=== PATIENT | female | born 1995 | race Caucasian/White ===

== ENCOUNTER 2019-01-15 13:57 | Emergency (ER) | payer BC ==
[~2019-01-15] VITALS: Ht 172.7 cm; Wt 53.5 kg
[2019-01-15] MEDS ORDERED: LAMO25TA5 PO (14:36)
[2019-01-15] MEDS ORDERED: IV NORMAL SALINE 1000ML BAG 1,000 ML IV SCH (15:11)
[2019-01-15] MEDS ORDERED: PROCHLORPERAZINE 10 MG/2 ML VIAL. IV ONE (15:15)
[2019-01-15] MEDS ORDERED: FAMOTIDINE 20 MG/2 ML VIAL IVP ONE (15:15)
[2019-01-15] MEDS ORDERED: HYOSCYAMINE 0.125 MG TAB.RAPDIS PO ONE (15:15)
--- NOTE | 2019-01-15 15:27 | PHYS DOC ---
Past Medical History Past Medical History: No Pertinent History Alcohol Use: None Drug Use: None Adult General Chief Complaint Chief Complaint: ABDOMINAL PAIN HPI HPI Patient is a 23 year old female who presents with upper abdominal pain that started yesterday evening. This is sharp, radiates into the back. No relief with [id number] Aleve. There is nausea, no vomiting, no diarrhea. Nothing seems to make the discomfort better or worse. No previous history of this discomfort. Pain is moderate to severe.[] Review of Systems Review of Systems Constitutional: Denies fever or chills [] Eyes: Denies change in visual acuity, redness, or eye pain [] HENT: Denies nasal congestion or sore throat [] Respiratory: Denies cough or shortness of breath [] Cardiovascular: No chest pain or palpitations[] GI: See history of present illness[] : Denies dysuria or hematuria [] Musculoskeletal: Denies back pain or joint pain [] Integument: Denies rash or skin lesions [] Neurologic: Denies headache, focal weakness or sensory changes [] Endocrine: Denies polyuria or polydipsia [] All other systems were reviewed and found to be within normal limits, except as documented in this note. Current Medications Current Medications Current Medications Medications (Trade) Dose Ordered Sig/Tosin Start Time Stop Time Status Last Admin Dose Admin Famotidine (Pepcid Vial) 20 mg 1X ONCE 01/15/19 15:15 01/15/19 15:16 DC 01/15/19 15:49 20 MG Hyoscyamine (Anaspaz) 0.125 mg ONCE ONCE 01/15/19 15:15 01/15/19 15:16 DC 01/15/19 15:54 0.125 MG Info (CONTRAST GIVEN -- Rx MONITORING) 1 each PRN DAILY PRN 01/15/19 15:30 01/17/19 15:29 Iohexol (Omnipaque 300 Mg/ml) 75 ml 1X ONCE 01/15/19 15:30 01/15/19 15:31 DC Multi-Ingredient Mouthwash/Gargle (Gi Cocktail) 20 ml 1X ONCE 01/15/19 15:30 01/15/19 15:31 DC 01/15/19 15:56 20 ML Prochlorperazine Edisylate (Compazine) 5 mg 1X ONCE 01/15/19 15:15 01/15/19 15:16 DC 01/15/19 15:58 5 MG Sodium Chloride 1,000 ml @ 100 mls/hr Q10H 01/15/19 15:11 01/16/19 01:10 01/15/19 15:47 100 MLS/HR Allergies Allergies Allergies Coded Allergies Type Severity Reaction Last Updated Verified No Known Drug Allergies 01/15/19 No Physical Exam Physical Exam Constitutional: Well developed, well nourished, no acute distress, non-toxic appearance. [] HENT: Normocephalic, atraumatic, bilateral external ears normal, oropharynx moist, no oral exudates, nose normal. [] Eyes: PERRLA, EOMI, conjunctiva normal, no discharge. [] Neck: Normal range of motion, no tenderness, supple, no stridor. [] Cardiovascular:Heart rate regular rhythm, no murmur [] Lungs & Thorax: Bilateral breath sounds clear to auscultation [] Abdomen: Bowel sounds normal, soft, epigastric tenderness, no rebound, no guarding, no rigidity, no Soto's sign, no McBurney's point tenderness, no masses, no pulsatile masses. [] Skin: Warm, dry, no erythema, no rash. [] Back: No tenderness, no CVA tenderness. [] Extremities: No tenderness, no cyanosis, no clubbing, ROM intact, no edema. [] Neurologic: Alert and oriented X 3, normal motor function, normal sensory function, no focal deficits noted. [] Psychologic: Affect normal, judgement normal, mood normal. [] Current Patient Data Vital Signs Vital Signs Date Time Temp Pulse Resp B/P (MAP) Pulse Ox O2 Delivery O2 Flow Rate FiO2 01/15/19 14:29 97.9 69 16 92/64 (73) 100 Room Air 97.9 Lab Values Laboratory Tests Test 01/15/19 13:50 01/15/19 14:40 01/15/19 15:21 POC Urine HCG, Qualitative Hcg negative (Negative) Urine Collection Type Unknown Urine Color Yellow Urine Clarity Clear Urine pH 6.5 Urine Specific [place] 1.025 Urine Protein 30 mg/dL (NEG-TRACE) Urine Glucose (UA) Negative mg/dL (NEG) Urine Ketones (Stick) Trace mg/dL (NEG) Urine Blood Trace (NEG) Urine Nitrite Negative (NEG) Urine Bilirubin Negative (NEG) Urine Urobilinogen Dipstick 0.2 mg/dL (0.2 mg/dL) Urine Leukocyte Esterase Moderate (NEG) Urine RBC 1-2 /HPF (0-2) Urine WBC 5-10 /HPF (0-4) Urine Squamous Epithelial Cells Many /LPF Urine Bacteria Many /HPF (0-FEW) Urine Mucus Marked /LPF Urine Opiates Screen Neg (NEG) Urine Methadone Screen Neg (NEG) Urine Barbiturates Neg (NEG) Urine Phencyclidine Screen Neg (NEG) Urine Amphetamine/Methamphetamine Neg (NEG) Urine Benzodiazepines Screen Neg (NEG) Urine Cocaine Screen Pos (NEG) Urine Cannabinoids Screen Pos (NEG) Urine Ethyl Alcohol Neg (NEG) White Blood Count 11.2 x10^3/uL (4.0-11.0) H Red Blood Count 4.06 x10^6/uL (3.50-5.40) Hemoglobin 12.7 g/dL (12.0-15.5) Hematocrit 37.1 % (36.0-47.0) Mean Corpuscular Volume 92 fL (79-100) Mean Corpuscular Hemoglobin 31 pg (25-35) Mean Corpuscular Hemoglobin Concent 34 g/dL (31-37) Red Cell Distribution Width 11.9 % (11.5-14.5) Platelet Count 323 x10^3/uL (140-400) Neutrophils (%) (Auto) 82 % (31-73) H Lymphocytes (%) (Auto) 12 % (24-48) L Monocytes (%) (Auto) 5 % (0-9) Eosinophils (%) (Auto) 1 % (0-3) Basophils (%) (Auto) 0 % (0-3) Neutrophils # (Auto) 9.2 x10^3uL (1.8-7.7) H Lymphocytes # (Auto) 1.3 x10^3/uL (1.0-4.8) Monocytes # (Auto) 0.5 x10^3/uL (0.0-1.1) Eosinophils # (Auto) 0.1 x10^3/uL (0.0-0.7) Basophils # (Auto) 0.0 x10^3/uL (0.0-0.2) Sodium Level 142 mmol/L (136-145) Potassium Level 4.1 mmol/L (3.5-5.1) Chloride Level 103 mmol/L (98-107) Carbon Dioxide Level 30 mmol/L (21-32) Anion Gap 9 (6-14) Blood Urea Nitrogen 17 mg/dL (7-20) Creatinine 0.8 mg/dL (0.6-1.0) Estimated GFR (Cockcroft-Gault) 90.5 BUN/Creatinine Ratio 21 (6-20) H Glucose Level 91 mg/dL (70-99) Calcium Level 9.0 mg/dL (8.5-10.1) Total Bilirubin 0.4 mg/dL (0.2-1.0) Aspartate Amino Transferase (AST) 19 U/L (15-37) Alanine Aminotransferase (ALT) 16 U/L (14-59) Alkaline Phosphatase 78 U/L (46-116) Total Protein 7.8 g/dL (6.4-8.2) Albumin 3.9 g/dL (3.4-5.0) Albumin/Globulin Ratio 1.0 (1.0-1.7) Lipase 78 U/L (73-393) Laboratory Tests 01/15/19 15:21 Laboratory Tests 01/15/19 15:21 EKG EKG [] Radiology/Procedures Radiology/Procedures CT abdomen and pelvis with contrast. HISTORY: Upper abdominal pain CT scan of the abdomen and pelvis was done using 75 mL Omnipaque 300 contrast. Lung bases are clear. There is no effusion. Liver is normal in appearance. Gallbladder is distended but without calcified gallstones stones. The common duct is dilated ultrasound could be of benefit. Spleen and adrenal glands are normal. Pancreas is normal. There is no mass or hydronephrosis in the kidneys. There is no bowel obstruction. There is no free air. There is an intrauterine contraceptive device in good position. Appendix is on the right side of the pelvis and is normal in appearance. IMPRESSION: 1. Normal appendix. 2. Dilated common duct. 3. Distended gallbladder, ultrasound could be of benefit. 3. No renal or ureteral calculus noted. 4. No bowel obstruction or other acute finding.[] Course & Med Decision Making Course & Med Decision Making Pertinent Labs and Imaging studies reviewed. (See chart for details) D course: Patient arrived, was placed in bed, and tolerated exam well. She achieved significant pain relief with the medications administered. She was transported to and from CT without any complications. After the return of the laboratory and imaging findings, these were discussed with the patient who voiced understanding. All questions were answered. Medical decision making: This CT report is appreciated however patient does not have any right upper quadrant tenderness and no Soto's sign on exam. Additionally her LFTs are normal along with her lipase. So this may be a symptomatic cholelithiasis but there is no evidence of cholecystitis nor cholangitis. No evidence of pancreatitis. No evidence of perforation or obstruction. She may have a urinary tract infection based on contaminated specimen. Additionally her drug screen is noted to be positive for cannabinoids as well as cocaine which may also be triggering some of this discomfort.[] Dragon Disclaimer Dragon Disclaimer This electronic medical record was generated, in whole or in part, using a voice recognition dictation system. Departure Departure Impression: Primary Impression: Abdominal pain Disposition: HOME, SELF-CARE Condition: IMPROVED Patient Instructions: Abdominal Pain Additional Instructions: Drink plenty of fluids. Avoid fatty foods, milk, and pepper. Do not use any drugs or medications that are not prescribed for you, they may kill you. Follow- up with your regular doctor in 2 days. If you do not have regular doctor a list of local clinics will be provided for you. Return to the ER if worsening pain, unable to tolerate liquids, or any other concerns. Scripts Lansoprazole (PREVACID) 15 Mg Capsule.dr 15 MG PO DAILY, #20 CAP Prov: JOÃO العلي DO 01/15/19 Hyoscyamine Sulfate (LEVSIN) 0.125 Mg Tablet 0.125 MG PO QID, #30 TAB Prov: JOÃO العلي DO 01/15/19 Problem Qualifiers Primary Impression: Abdominal pain Abdominal location: epigastric Qualified Codes: R10.13 - Epigastric pain JOÃO العلي DO Jan 15, 2019 15:27
[2019-01-15] MEDS ORDERED: CONTRAST GIVEN. MC PRN (15:30)
[2019-01-15] MEDS ORDERED: IOHEXOL 300 MG/ML 100ML VIAL. IV ONE (15:30)
[2019-01-15] MEDS ORDERED: LIDO:MAALOX 1:1 20 ML SINGLE DOSE. SWSW ONE (15:30)
[2019-01-15 15:54] LABS: BASO % 0 % (0-3); EOS # 0.1 x10^3/uL (0.0-0.7); EOS % 1 % (0-3); HEMATOCRIT 37.1 % (36.0-47.0); HEMOGLOBIN 12.7 g/dL (12.0-15.5); LYMPH # 1.3 x10^3/uL (1.0-4.8); LYMPH % 12 % (24-48); MEAN CORPUSCULAR HEMOGLOBIN 31 pg (25-35); MEAN CORPUSCULAR HGB CONC 34 g/dL (31-37); MEAN CORPUSCULAR VOLUME 92 fL (79-100); MONO # 0.5 x10^3/uL (0.0-1.1); MONO % 5 % (0-9); NEUT # 9.2 x10^3uL (1.8-7.7); NEUT % 82 % (31-73); PLATELET COUNT 323 x10^3/uL (140-400); RED BLOOD COUNT 4.06 x10^6/uL (3.50-5.40); RED CELL DISTRIBUTION WIDTH 11.9 % (11.5-14.5); WHITE BLOOD COUNT 11.2 x10^3/uL (4.0-11.0)
[2019-01-15 15:58] LABS: BILIRUBIN,URINE NEGATIVE (NEG); CLARITY,URINE CLEAR; COLOR,URINE YELLOW; NITRITE,URINE NEGATIVE (NEG); PH,URINE 6.5; PROTEIN,URINE 30 mg/dL (NEG-TRACE); UROBILINOGEN,URINE 0.2 mg/dL (0.2 mg/dL)
[2019-01-15 16:06] LABS: CREATININE 0.8 mg/dL (0.6-1.0); GFR 90.5; POTASSIUM 4.1 mmol/L (3.5-5.1)
[2019-01-15 16:08] LABS: BACTERIA,URINE MANY /HPF (0-FEW); SQUAMOUS EPITHELIAL CELL,UR MANY /LPF
[2019-01-15 16:09] LABS: ALBUMIN 3.9 g/dL (3.4-5.0); TOTAL BILIRUBIN 0.4 mg/dL (0.2-1.0); TOTAL PROTEIN 7.8 g/dL (6.4-8.2)
[2019-01-15 16:11] LABS: BARBITURATES NEG (NEG); BENZODIAZEPINES NEG (NEG); CANNABINOIDS POS (NEG); COCAINE POS (NEG); METHADONE NEG (NEG); OPIATES NEG (NEG); PHENCYCLIDINE NEG (NEG)
[2019-01-15 16:18] LABS: AMPHETAMINE/METHAMPHETAMINE NEG (NEG)
--- NOTE | 2019-01-15 16:58 | RAD ---
CT abdomen and pelvis with contrast. HISTORY: Upper abdominal pain CT scan of the abdomen and pelvis was done using 75 mL Omnipaque 300 contrast. Lung bases are clear. There is no effusion. Liver is normal in appearance. Gallbladder is distended but without calcified gallstones stones. The common duct is dilated ultrasound could be of benefit. Spleen and adrenal glands are normal. Pancreas is normal. There is no mass or hydronephrosis in the kidneys. There is no bowel obstruction. There is no free air. There is an intrauterine contraceptive device in good position. Appendix is on the right side of the pelvis and is normal in appearance. IMPRESSION: 1. Normal appendix. 2. Dilated common duct. 3. Distended gallbladder, ultrasound could be of benefit. 3. No renal or ureteral calculus noted. 4. No bowel obstruction or other acute finding. Electronically signed by: Toni Browne MD (01/15/2019 4:55 PM) [facility]
[2019-01-15 17:08] VITALS: BP 106/57
[2019-01-15] MEDS ORDERED: LANS15CA78 PO (17:08)
[2019-01-15] MEDS ORDERED: HYOS0.1264 PO (17:08)
== END 2019-01-15 17:25 | disposition home or self-care (01) ==
LOC: ER 13:57
DX: R10.13 Epigastric pain (principal); K82.8 Other specified diseases of gallbladder; R11.0 Nausea
CPT/HCPCS: 36415; 74177; 80053; 80307; 81001; 81025; 83690; 85025; 87086; 96374; 96375; 99284; J0780; J3490; J7030; 87186